=== PATIENT | female | born 1950 | race Caucasian/White ===

== ENCOUNTER → 2020-09-02 13:00 | Outpatient (REF) | payer MEDICARE, OTHER, SELFPAY ==
--- NOTE | 2020-09-02 13:00 | CA_ITS ---
Transthoracic Echocardiogram Patient (Last, First, Middle): Gabrielle Sexton, Gender: Female Date of : 1950 Age: 70 Procedure Date: 09/02/2020 Procedure Type: Transthoracic Echocardiogram Location: OP Height: 170.18 cm Weight: 93.9 kg BSA: 2.05 m2 Heart Rate: bpm BP: 128 / 80 mmHg Public Relations Representative: Referring MD: Donny Méndez MD Symptoms: SVT,PAC,PVC Study Quality: Good ECG Rhythm: Sinus Conclusions: - The left ventricular systolic function is normal. The visually estimated ejection fraction is between 65-70%. - Evidence suggests grade II (moderate) diastolic dysfunction. - There is mild mitral valve regurgitation. - There is mild tricuspid valve regurgitation. - Mild pulmonary hypertension is present. Findings Left Ventricle Normal left ventricular cavity size. There is normal left ventricular wall thickness. The left ventricular systolic function is normal. The visually estimated ejection fraction is between 65-70%. E/E prime ratio is between 8 and 15 consistent with indeterminate filling pressures. Evidence suggests grade II (moderate) diastolic dysfunction. Right Ventricle Mildly increased right ventricular cavity size. There is normal right ventricular systolic function. Atria The left atrium is mildly dilated. The right atrium is normal in size. Aortic Valve There is a normal trileaflet aortic valve. There is no aortic valve stenosis. There is no aortic valve regurgitation. Mitral Valve The mitral valve appears normal. There is mild mitral valve regurgitation. There is no mitral valve stenosis. Pulmonic Valve The pulmonic valve was not well visualized. There is mild pulmonic valve regurgitation. Tricuspid Valve Normal tricuspid valve structure. There is mild tricuspid valve regurgitation. The right ventricular systolic pressure is 36 mmHg. Mild pulmonary hypertension is present. Great Vessels The aortic annulus, sinuses of valsalva, and asc aorta are normal in size. Small plaque is seen in the sino tubular ridge. Venous The inferior vena cava is normal in size and collapses greater than 50% with inspiration. Pericardium/Pleural There is no evidence of pericardial effusion. Prior Study Comparison No significant change compared to prior study dated: 06/03/2019. Measurements 2D Linear Measurements IVSd: 0.90 0.6-0.9/0.6-1.0 cm LVIDd: 4.24 3.9-5.3/4.2-5.9 cm LVIDd Index: 2.07 2.4-3.2/2.2-3.1 cm/m2 LVIDs: 2.62 2.0-3.6 cm LVPWd: 0.97 0.7-1.1 cm Ao Root: 3.20 2.1-3.5 cm LA Diam: 4.10 2.7-3.8/3.0-4.0 cm LAIDs Index: 2.00 1.5-2.3 cm/m2 LV Mass: 157.83 67-162/88-224 g LV Mass Index: 76.99 43-95/49-115 g/m2 LVOT Diam: 2.10 3.0+(-)1.3 cm 2D Systolic Function EF 4C: 67.20 >55% EF 2C: 64.70 >55% EF BiP: 66.90 >55% Mitral Valve MV Pk E: 1.02 MV PK A: 0.87 MV Decel Time: 261.00 E/A: 1.20 E'Lateral: 11.00 E'Medial: 5.80 E/E' Med: 17.60 E/E' Lat: 9.30 PHT: 76.00 MVA PHT: 2.89 [place]: 3.91 Aortic Valve AoV Pk Cy: 1.42 AoV Mn Cy: 0.86 AoV VTI: 0.41 AoV Pk Grad: 8.00 Aov Mn Grad: 4.00 GISELLE Cont.VTI: 2.09 LVOT LVOT Pk Cy: 1.00 LVOT Mn Cy: 0.69 LVOT VTI: 0.25 LVOT Pk Grad: 4.00 LVOT Mn Grad: 2.00 LVOT Diam: 2.10 LVOT Area: 3.46 Diastolic Function MV Pk E: 1.02 MV Pk A: 0.87 E/A: 1.20 E'Medial: 5.80 E/E' Med: 17.60 E' Laterial: 11.00 E/E' Lat: 9.30 Tricuspid Valve TR Pk Cy: 2.89 TR Pk Grad: 33.00 RA Press: 3.00 RVSP: 36.00 Great Vessels Aorta Ao Root-2D: 3.20 2.0-3.7 cm Ao Asc: 3.30 2.1-3.4 cm Ao Arch: 3.60 Pulmonary Valve PV Pk Cy: 0.95 Peak PV Grad: 4.00 Updated in Other Vendor System with Status of Final Donny Méndez MD electronically signed on 09/03/2020 2:13:10 PM with status of Final
--- NOTE | 2020-09-02 13:30 | ECG_ITS ---
Hook-up date: 2020-09-02 13:58:00 Duration: 47:59:00 Test Indications: SVT, PAC, PVC, PALPS Medications: 90676 QRS complexes 1900 Ventricular ectopics which represent 1 % of total QRS comp. 169 Supraventricular ectopics which represent <1 % of total QRS comp. * Paced QRS complexs which represent % of total QRS comp. VENTRICULAR ECTOPY 1776 Isolated 25 Bigeminal Cycles 13 Couplets 14 Runs 98 Beats in Runs 13 Beats LONGEST at 150 BPM at 06:56:32 2020-09-03 5 Beats FASTEST at 162 BPM at 06:57:00 2020-09-03 SUPRAVENTRICULAR ECTOPY 125 Isolated 7 Couplets 5 Runs 30 Beats in Runs 17 Beats LONGEST at 70 BPM at 14:00:03 2020-09-02 3 Beats FASTEST at 172 BPM at 16:41:10 2020-09-02 HEART RATES 48 MIN at 03:10:36 2020-09-03 66 AVG 185 MAX at 06:48:20 2020-09-03 LONGEST RR 1.9920 secs at 03:42:32 2020-09-03 S-T LEVELS Channel 1 - 128 mm at 13:58:00 2020-09-02 - 128 mm at 13:58:00 2020-09-02 Channel 2 - 128 mm at 13:58:00 2020-09-02 - 128 mm at 13:58:00 2020-09-02 Channel 3 - 128 mm at 03:31:71 -- - 128 mm at 03:31:71 Patient rhythm alternated between NSR and atril fibrillation/flutter with RVR No long pause or profound bradycardia Frequent Premature atrial complexes Frequent wide qrs complexes, some of them appear to be PVCs. some aberrant complexes. Frequent wide complex runs,longest 13 beats, NSVT cannot be ruled out Patient reported symptoms of palpitations are during episodes of AF Referred By: Donny Méndez Overread By: NANCY JALLOH MD
== END ==
LOC: HO.CARD 13:00
PROVIDERS: PCP Internal Medicine; Visit Provider Internal Medicine
DX: I47.1 Supraventricular tachycardia (principal); I49.1 Atrial premature depolarization; I49.3 Ventricular premature depolarization; R00.2 Palpitations
CPT/HCPCS: 93226; 93306

== ENCOUNTER → 2020-09-15 13:50 | Outpatient (BNVA) | payer MEDICARE, OTHER, SELFPAY | PROVIDERS: PCP Internal Medicine; Visit Provider Internal Medicine | DX: I48.0 Paroxysmal atrial fibrillation (principal); I47.1 Supraventricular tachycardia; I11.9 Hypertensive heart disease without heart failure; I27.20 Pulmonary hypertension, unspecified; E66.01 Morbid (severe) obesity due to excess calories; Z68.34 Body mass index [BMI] 34.0-34.9, adult; Z79.899 Other long term (current) drug therapy | CPT/HCPCS: 93005; 99212 ==

== ENCOUNTER 2020-09-21 10:55 | Outpatient (REF) | payer MEDICARE, OTHER, SELFPAY ==
[2020-09-21 11:38] LABS: Hematocrit 42.2 % (37-47); Mean Corpuscular HGB Conc 33.2 g/dl (31.0-35.0); Mean Corpuscular Hemoglobin 29.2 pg (27.0-33.0); Mean Corpuscular Volume 88.1 fL (80-98); Mean Platelet Volume 11.3 fL (9.4-12.3); Platelet Count 184 X10*3/uL (160-400); Red Blood Count 4.79 X10*6/uL (4.20-5.50); Red Cell Distribution Width 13.2 % (11.0-16.0); White Blood Count 5.2 X10*3/uL (4.8-10.8)
== END 2020-09-21 10:56 | disposition home or self-care (01) ==
LOC: HO.LAB 10:55
PROVIDERS: Visit Provider Internal Medicine
DX: G47.33 Obstructive sleep apnea (adult) (pediatric) (principal); I48.0 Paroxysmal atrial fibrillation
CPT/HCPCS: 36415; 85027

== ENCOUNTER → 2020-10-03 13:10 | Outpatient (REF) | payer MEDICARE, OTHER, SELFPAY | LOC: HO.SL 13:10 | PROVIDERS: Visit Provider Internal Medicine | DX: G47.33 Obstructive sleep apnea (adult) (pediatric) (principal) | CPT/HCPCS: 95806 ==

== ENCOUNTER → 2020-11-17 12:55 | Outpatient (BNVA) | payer MEDICARE, OTHER, SELFPAY | PROVIDERS: PCP Internal Medicine; Visit Provider Internal Medicine | DX: I48.0 Paroxysmal atrial fibrillation (principal); I10 Essential (primary) hypertension; I51.89 Other ill-defined heart diseases; I27.20 Pulmonary hypertension, unspecified; E66.01 Morbid (severe) obesity due to excess calories | CPT/HCPCS: 99212 ==

== ENCOUNTER → 2021-02-23 10:52 | Outpatient (BNVA) | payer MEDICARE, OTHER, SELFPAY | PROVIDERS: PCP Internal Medicine; Visit Provider Internal Medicine | DX: I48.0 Paroxysmal atrial fibrillation (principal); I10 Essential (primary) hypertension; I51.89 Other ill-defined heart diseases; I27.20 Pulmonary hypertension, unspecified; E66.01 Morbid (severe) obesity due to excess calories; M79.89 Other specified soft tissue disorders | CPT/HCPCS: 93005; 99212 ==

== ENCOUNTER → 2021-10-11 10:04 | Outpatient (BNVA) | payer MEDICARE, OTHER, SELFPAY | PROVIDERS: PCP Internal Medicine; Visit Provider Internal Medicine | DX: I48.0 Paroxysmal atrial fibrillation (principal); I11.0 Hypertensive heart disease with heart failure; I50.30 Unspecified diastolic (congestive) heart failure; I27.20 Pulmonary hypertension, unspecified; E66.01 Morbid (severe) obesity due to excess calories; M79.89 Other specified soft tissue disorders; Z88.1 Allergy status to other antibiotic agents; Z88.2 Allergy status to sulfonamides; Z79.899 Other long term (current) drug therapy | CPT/HCPCS: 99212 ==

== ENCOUNTER → 2021-11-07 11:19 | Outpatient (REF) | payer MEDICARE, OTHER, SELFPAY ==
--- NOTE | 2021-11-07 11:24 | HM_ITS ---
Conclusion: 1. Patient was monitor for total period of 2 days and 19 hours 2. Baseline was normal sinus rhythm with average heart of 57 beats per minute on the bradycardic side 3. 16 short episodes of supraventricular tachycardia, longest lasting 10 beats 4. Total of 10,862 PACs accounting for 5.36% total burden account for frequent PACs 5. No significant pausesnoted 6. No patient reported events MTDD
== END ==
LOC: HO.CARD 11:19
PROVIDERS: Visit Provider Internal Medicine
DX: I48.0 Paroxysmal atrial fibrillation (principal)
CPT/HCPCS: 93242

== ENCOUNTER → 2022-01-03 12:25 | Outpatient (BNVA) | payer MEDICARE, OTHER, SELFPAY | PROVIDERS: PCP Internal Medicine; Visit Provider Internal Medicine | DX: I48.0 Paroxysmal atrial fibrillation (principal); I51.89 Other ill-defined heart diseases; I10 Essential (primary) hypertension; I27.20 Pulmonary hypertension, unspecified; I87.2 Venous insufficiency (chronic) (peripheral); E66.01 Morbid (severe) obesity due to excess calories; M79.89 Other specified soft tissue disorders; Z68.34 Body mass index [BMI] 34.0-34.9, adult | CPT/HCPCS: 99212 ==

== ENCOUNTER 2022-02-14 10:24 | Outpatient (REF) | payer MEDICARE, OTHER, SELFPAY ==
--- NOTE | ~2022-02-14 | US_ITS ---
EXAMINATION: US VENOUS DUPLEX LOWER EXTREMITY, BILATERAL CLINICAL INFORMATION: Lower extremity chronic venous insufficiency. COMPARISON: None TECHNIQUE: Color-flow triplex imaging and compression Doppler were performed to evaluate both the deep and the superficial systems bilaterally. To evaluate the superficial system, the examination was performed in the upright position. Color-flow Doppler ultrasound and compression ultrasound were utilized. In addition, maneuvers were utilized to demonstrate reflux. FINDINGS: SUPERFICIAL ULTRASOUND WITH DOPPLER OF RIGHT LOWER EXTREMITY Great Saphenous Vein: Saphenofemoral junction: 8 mm Maximum diameter: 8 mm Minimum diameter: 2 mm Reflux: No evidence of reflux. Additional: The great saphenous vein is not visualized at the mid calf. Duplicated Medial Great Saphenous Vein: Maximum diameter: 4 mm at the saphenofemoral junction. Reflux: None Duplicated Lateral Great Saphenous Vein: Diameter: 4 mm at the saphenofemoral junction. Reflux: None Small Saphenous Vein: Proximal calf: 2 mm Distal calf: 2 mm Reflux: There is greater than 1.2 seconds of reflux at the distal calf. Vein of Giacomini: None imaged. Perforators: Location: Mid thigh and proximal calf measuring 3 mm and 2 mm respectively. Reflux: None Varicosities: Location: Proximal and distal calf and lateral proximal thigh measuring between 3 mm and 7 mm. Reflux: Varicosities within the distal calf and proximal thigh demonstrate reflux greater than 2.6 seconds. DEEP VENOUS ULTRASOUND OF THE RIGHT LOWER EXTREMITY: Common Femoral Vein: Compressible, normal respiratory variation and augmented flow. Femoral Vein: Compressible, normal color flow and augmentation. Popliteal Vein: Compressible, normal augmentation. Deep Reflux: There is no evidence of reflux in the deep system in either the common femoral vein or the popliteal vein. Rodríguez's Cyst: There is no evidence of a Rodríguez's cyst. SUPERFICIAL ULTRASOUND WITH DOPPLER OF LEFT LOWER EXTREMITY Great Saphenous Vein: Saphenofemoral junction: 12 mm Maximum diameter: 12 mm Minimum diameter: 2 mm Reflux: No evidence of reflux. Duplicated Medial Great Saphenous Vein: Maximum diameter: None imaged. Reflux: NA Duplicated Lateral Great Saphenous Vein: Diameter: 12 mm at the saphenofemoral junction. Reflux: There is greater than 2.8 seconds of reflux at the saphenofemoral junction. Small Saphenous Vein: Proximal calf: 2 mm Distal calf: 3 mm Reflux: There is greater than 2.3 seconds of reflux at the proximal calf. Vein of Giacomini: None imaged. Perforators: Location: Mid thigh and proximal calf measuring between 2 mm and 4 mm. Reflux: None Varicosities: Location: Proximal thigh, at knee and within the distal calf measuring between 3 mm and 7 mm. Reflux: There is greater than 2.8 seconds of reflux within the varicosities of the proximal thigh. DEEP VENOUS ULTRASOUND OF THE LEFT LOWER EXTREMITY: Common Femoral Vein: Compressible, normal respiratory variation and augmented flow. Femoral Vein: Compressible, normal color flow and augmentation. Popliteal Vein: Compressible, normal augmentation. Deep Reflux: There is no evidence of reflux in the deep system in either the common femoral vein or the popliteal vein. Rodríguez's Cyst: There is no evidence of a Rodríguez's cyst. US/US venous duplex LE BI IMPRESSION: 1. Duplicated lateral left great saphenous venous insufficiency beginning at the saphenofemoral junction. 2. Left small saphenous venous insufficiency beginning in the proximal/mid calf. 3. Bilateral refluxing varicosities. 4. No evidence of DVT or deep venous insufficiency.
== END 2022-02-14 10:25 | disposition home or self-care (01) ==
LOC: HO.US 10:24
PROVIDERS: Visit Provider Internal Medicine
DX: I87.2 Venous insufficiency (chronic) (peripheral) (principal)
CPT/HCPCS: 93970

== ENCOUNTER → 2022-04-10 09:10 | Outpatient (BNVA) | payer MEDICARE, OTHER, SELFPAY | PROVIDERS: PCP Internal Medicine; Visit Provider Internal Medicine | DX: I48.0 Paroxysmal atrial fibrillation (principal); I51.89 Other ill-defined heart diseases; I27.20 Pulmonary hypertension, unspecified; I87.2 Venous insufficiency (chronic) (peripheral); I47.1 Supraventricular tachycardia; E66.01 Morbid (severe) obesity due to excess calories; Z79.899 Other long term (current) drug therapy; Z79.01 Long term (current) use of anticoagulants | CPT/HCPCS: 93005; 99212 ==

== ENCOUNTER → 2022-09-25 09:27 | Outpatient (BNVA) | payer MEDICARE, OTHER, SELFPAY | PROVIDERS: PCP Internal Medicine; Referring Provider Internal Medicine; Visit Provider Internal Medicine | DX: I10 Essential (primary) hypertension (principal); I51.89 Other ill-defined heart diseases; I27.20 Pulmonary hypertension, unspecified; I87.2 Venous insufficiency (chronic) (peripheral); E66.01 Morbid (severe) obesity due to excess calories; Z68.35 Body mass index [BMI] 35.0-35.9, adult | CPT/HCPCS: 99212 ==

== ENCOUNTER 2023-05-16 09:23 | Outpatient (AMB) | payer MEDICARE, OTHER, SELFPAY ==
--- NOTE | 2023-05-16 09:26 | MHC.OFFVIS ---
Intake Vital Signs 05/16/23 09:28 Height 5 ft 6 in Weight 221 lb BMI 35.7 BP 132/90 H Blood Pressure Location Lt brachial Position Sitting Pulse 89 Pulse Source Pulse Oximeter Pulse Oximetry (%) 97 Oxygen Delivery Method Room Air Intake Visit Reasons: NPV-Cavernous Hemangioma-confirmed Intake Note: Pt presents to the office today for a new patient visit for cavernous hemangioma. Pt states she is feeling okay. Allergies ciprofloxacin [Cipro] Adverse Reaction (Unknown, Verified 05/16/23 09:30) ringing in the ears,high blood pressure hallucinations Sulfa (Sulfonamide Antibiotics) Adverse Reaction (Unknown, Verified 05/16/23 09:30) ringing in the ears,high blood pressure and hallucinations Medication List - Last Reconciled 05/16/23 by Katie Arora MD amlodipine 10 mg PO DAILY 90 days apixaban (Eliquis) 5 mg PO BID atenolol 75 mg PO DAILY atorvastatin 10 mg PO DAILY furosemide (Lasix) 20 mg PO .PRN levothyroxine 50 mcg PO DAILY HPI HPI Comments History of Present Illness Details 73y/o female with h/o cavernoma comes for evaluation of head pain. 1 year ago she had a sharp pain in her right yarsani area lasting for 2 weeks . she went to [facility] ER- she had a CT scan , not sure if she was given any medications. The pain resolved and she is here for neuro evaluation of her cavernoma. she has snoring but no other sleep issues. Her Home sleep test was normal. she used to have lot of migraines with visual aura and speech issues when she was young. It has decreased in frequency for past 5 years . she has about 1-2 headaches /year. [facility] Medical History (Updated 05/16/23 @ 09:59 by Katie Arora MD) Migraine with aura Cavernous angioma Venous insufficiency of both lower extremities Morbid obesity Diastolic dysfunction Pulmonary hypertension Essential hypertension PAF (paroxysmal atrial fibrillation) Surgical History History of tonsillectomy History of tubal ligation History of partial thyroidectomy History of knee surgery History of back surgery Family History Father CVD (cardiovascular disease) HTN (hypertension) Social History Alcohol intake: never Patient Tobacco Use Status: Never used Tobacco Review of Systems Const Denies weakness ENT Denies dizziness Card Denies chest pain, Denies chest pain with activity, Denies syncope, Denies rapid heart rate, Denies pedal edema, Denies edema, Denies leg edema, Denies lightheadedness, Denies palpitations, Denies dyspnea, Denies dyspnea on exertion and Denies orthopnea Resp Denies cough, Denies dyspnea and Denies dyspnea on exertion GI Denies hematochezia and Denies change in stool character Musc Denies abnormal gait, Denies muscle cramps, Denies muscle weakness, Denies numbness, Denies radiating pain into limb and Denies tingling Neuro Denies abnormal gait, Denies dizziness, Denies syncope, Denies numbness, Denies tingling and Denies weakness Endo Denies palpitations Physical Exam Vital Signs: Last Vital Signs Pulse 89 05/16/23 09:28 BP 132/90 H 05/16/23 09:28 Pulse Ox 97 05/16/23 09:28 Oxygen Delivery Method Room Air 05/16/23 09:28 BMI result Body Mass Index 35.7 Const General: cooperative, healthy appearing and comfortable Nutritional Appearance: obese Orientation/consciousness: patient oriented x3 Limitations: no limitations Eyes Pupils: Equal, round and reactive pupils present Neuro General: patient oriented x3, tone normal, moves all extremities and no focal motor deficits Cranial nerves: Yes Facial sensation intact/muscles of mastication intact, Yes Equal, round and reactive pupils present, Yes Bilaterally intact EOM present, Yes Nystagmus not present, Yes Normal facial strength present, Yes Midline tongue present and Yes Symmetric palate elevation present Cognition (Neuro): normal cognition Gait exam (Neuro): Antalgic gait present Motor exam (neuro): 5/5 motor strength present throughout Deep tendon reflexes (DTR's): Right triceps reflex intensity grade: 1+, Left triceps reflex intensity grade: 1+, Rt Biceps (C5, C6): 1+, Left biceps reflex intensity grade: 1+, Right brachioradialis reflex intensity grade: 1+, Left brachioradialis reflex intensity grade: 1+, Right patellar reflex intensity grade: 1+ and Left patellar reflex intensity grade: 1+ Coordination: [id number] test normal Psych Appearance: grossly normal Results Reviewed Results Reviewed: MR Brain with pema - 04/2020 1.5X1x1 m posterior periventricular cavernoma with adjacent venous angioma Assessment & Plan Assessment & Plan (1) Cavernous angioma: Code(s): D18.00 - Hemangioma unspecified site (2) Migraine with aura: Code(s): G43.109 - Migraine with aura, not intractable, without status migrainosus Plan: stable now Plan MRI brain with pema to reevaluate her angioma Her neuro exam was non focal. I will follow her up on a as needed basis Orders: Orders MR angio head wo/w con Today D18.02 - Hemangioma of intracranial structures Coding Level of Care Code New Pt Level 3 (53094) Diagnoses Cavernous angioma D18.00 Migraine with aura G43.109
[2023-05-16 09:28] VITALS: BP 132/90; PULSE 89; O2SAT 97; BMI 35.7
== END 2023-05-16 10:01 | disposition home or self-care (01) ==
PROVIDERS: Visit Provider Psychiatry & Neurology Neurology
DX: D18.00 Hemangioma unspecified site (principal); G43.109 Migraine with aura, not intractable, without status migrainosus
CPT/HCPCS: 99203

== ENCOUNTER → 2023-05-16 09:23 | Outpatient (BNVA) | payer MEDICARE, OTHER, SELFPAY | PROVIDERS: Visit Provider Psychiatry & Neurology Neurology ==

== ENCOUNTER 2023-06-17 13:58 | Outpatient (REF) | payer MEDICARE, OTHER, SELFPAY ==
--- NOTE | ~2023-06-17 | MR_ITS ---
EXAMINATION: MR ANGIOGRAPHY HEAD CLINICAL INFORMATION: Cavernous hemangioma. Occasional left-sided head pain. COMPARISON: None available. TECHNIQUE: Three-dimensional [id number] MR angiography of the intracranial vasculature was obtained. The patient reportedly refused intravenous contrast for the examination. FINDINGS: MRA of the [place] demonstrates a normal caliber to the anterior and posterior circulation vasculature. No stenoses or occlusions are seen. No vascular malformation or aneurysms are identified. Although not well characterized on this limited [id number] MRA of the head, there is a suspected 7 x 8 mm cavernous malformation in the left periatrial white matter. MR/MR angio head wo con IMPRESSION: Normal MRA of the head. Partially visualized suspected 7 x 8 mm cavernous malformation in the left periatrial white matter.
== END 2023-06-17 13:59 | disposition home or self-care (01) ==
LOC: HO.MRI 13:58
PROVIDERS: PCP Internal Medicine; Visit Provider Psychiatry & Neurology Neurology
DX: D18.02 Hemangioma of intracranial structures (principal)
CPT/HCPCS: 70544

== ENCOUNTER 2023-10-10 13:58 | Outpatient (AMB) | payer MEDICARE, OTHER, SELFPAY ==
[2023-10-10 14:39] VITALS: BP 120/80; PULSE 73; BMI 36.4
--- NOTE | 2023-10-10 14:39 | A.OFFVIS_ITS ---
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: No Accompanied by: Self / Same As Patient Allergies ciprofloxacin [Cipro] Adverse Reaction (Unknown, Verified 05/16/23 09:30) ringing in the ears,high blood pressure hallucinations Sulfa (Sulfonamide Antibiotics) Adverse Reaction (Unknown, Verified 05/16/23 09:30) ringing in the ears,high blood pressure and hallucinations Medication List - Last Reconciled 10/10/23 by Donny Méndez MD amlodipine 10 mg PO DAILY 90 days apixaban (Eliquis) 5 mg PO BID atenolol 75 mg PO DAILY atorvastatin 10 mg PO DAILY furosemide (Lasix) 20 mg PO .PRN levothyroxine 50 mcg PO DAILY HPI HPI Comments History of Present Illness Details Gabrielle returns for follow-up. He carries a previous diagnosis of SVT but then later diagnosed to have rather atrial flutter/fibrillation. Maintained on beta-blockers and Eliquis. She states that she recently had COVID few weeks back and was quite ill but not hospitalized. After that, she has not been feeling too good. No clear-cut angina but a bit more short of breath than usual. She is also feeling palpitations. [facility] Medical History (Updated 10/10/23 @ 15:22 by Donny Méndez MD) Migraine with aura Cavernous angioma Venous insufficiency of both lower extremities Morbid obesity Diastolic dysfunction Pulmonary hypertension Essential hypertension PAF (paroxysmal atrial fibrillation) Surgical History History of tonsillectomy History of tubal ligation History of partial thyroidectomy History of knee surgery History of back surgery Family History Father CVD (cardiovascular disease) HTN (hypertension) Social History Alcohol intake: never Patient Tobacco Use Status: Never used Tobacco Review of Systems Const Denies chills, Denies fatigue, Denies fever(s), Denies frequent falls, Denies weakness, Denies weight gain and Denies weight loss ENT Denies dizziness Card Denies chest pain, Denies leg edema, Denies lightheadedness, Denies palpitations, Denies dyspnea and Denies dyspnea on exertion Resp Denies cough, Denies dyspnea and Denies dyspnea on exertion GI Denies hematochezia Musc Denies abnormal gait, Denies muscle weakness, Denies numbness, Denies radiating pain into limb and Denies tingling Neuro Denies abnormal gait, Denies dizziness, Denies frequent falls, Denies numbness, Denies tingling and Denies weakness Endo Denies fatigue and Denies palpitations Physical Exam Vital Signs: Last Vital Signs Pulse 73 10/10/23 14:39 BP 120/80 10/10/23 14:39 BMI result Body Mass Index 36.4 Const General: comfortable and no acute distress Orientation/consciousness: patient oriented x3 HEENT Other: Unremarkable Head: Yes normal to inspection Neck Neck: Yes normal visual inspection Chest Chest palpation & inspection: normal inspection of the chest Resp Auscultation: clear to auscultation bilaterally Cardio Palpation: normal PMI Heart sounds: S1 normal heart sound present, S2 normal heart sound present, no gallops, no murmurs and no rubs GI Palpation (GI): Soft to palpation Back/Spine/Pelvis Other: unremarkable Skin General skin exam: no rashes or lesions noted Neuro General: patient oriented x3 Extrem General: Yes normal to inspection Psych Mental Status: mental status grossly normal Office Procedures EKG Details: EKG with atrial fibrillation at 73/Min; can not exclude old anterior infarct but could be from body habitus; T inversions noted in anterior leads as well as inferior leads. [id number], Complete Assessment & Plan Assessment & Plan (1) PAF (paroxysmal atrial fibrillation): Code(s): I48.0 - Paroxysmal atrial fibrillation Plan: Continue atenolol. Continue Eliquis. Sleep study without any SCOOTER. We discussed about cardioversion but she has not too keen on it. If she does not convert by herself will readdress. Could have been brought on by COVID. (2) Abnormal EKG: Code(s): R94.31 - Abnormal electrocardiogram [ECG] [EKG] Plan: EKG also shows T inversions which seem to be new. Recommended a stress test but again she states she would rather not have anything done. We will readdress again. Hopefully she will come to terms. Clinically, she does not have any overt angina. (3) Essential hypertension: Code(s): I10 - Essential (primary) hypertension Plan: Stable. Continue amlodipine and atenolol. (4) Diastolic dysfunction: Code(s): I51.89 - Other ill-defined heart diseases Plan: Grade 2 diastolic dysfunction on the last echocardiogram. Likely all from hypertension. As she has some additional shortness of breath, we can reassess with echocardiogram. (5) Pulmonary hypertension: Code(s): I27.20 - Pulmonary hypertension, unspecified Plan: Again related to diastolic dysfunction/hypertension. (6) Morbid obesity: Code(s): E66.01 - Morbid (severe) obesity due to excess calories Plan: Long-term issue and has been this way. May not be modifiable. (7) Venous insufficiency: Code(s): I87.2 - Venous insufficiency (chronic) (peripheral) Plan: She does have venous insufficiency based on ultrasound. Weight loss and compression stockings. Orders: Orders CA echo transthoracic complete Today I48.0 - Paroxysmal atrial fibrillation ECG 3 day holter monitor Today I48.0 - Paroxysmal atrial fibrillation, R00.2 - Palpitations Coding Level of Care Code Est Pt Level 4 (00717) Diagnoses PAF (paroxysmal atrial fibrillation) I48.0 Abnormal EKG R94.31 Essential hypertension I10 Diastolic dysfunction I51.89 Pulmonary hypertension I27.20 Morbid obesity E66.01 Venous insufficiency I87.2 CPT Codes EKG - CPT: 66389-[id number], Complete ([id number])
== END 2023-10-10 15:07 | disposition home or self-care (01) ==
PROVIDERS: PCP Internal Medicine; Visit Provider Internal Medicine
DX: I48.0 Paroxysmal atrial fibrillation (principal); R94.31 Abnormal electrocardiogram [ECG] [EKG]; I10 Essential (primary) hypertension; I51.89 Other ill-defined heart diseases; I27.20 Pulmonary hypertension, unspecified; E66.01 Morbid (severe) obesity due to excess calories; I87.2 Venous insufficiency (chronic) (peripheral)
CPT/HCPCS: 93010; 99214

== ENCOUNTER → 2023-10-10 13:58 | Outpatient (BNVA) | payer MEDICARE, OTHER, SELFPAY | PROVIDERS: PCP Internal Medicine; Visit Provider Internal Medicine | DX: I48.0 Paroxysmal atrial fibrillation (principal); I10 Essential (primary) hypertension; I51.89 Other ill-defined heart diseases; I27.20 Pulmonary hypertension, unspecified; I87.2 Venous insufficiency (chronic) (peripheral); E66.01 Morbid (severe) obesity due to excess calories; R94.31 Abnormal electrocardiogram [ECG] [EKG]; Z68.36 Body mass index [BMI] 36.0-36.9, adult | CPT/HCPCS: 93005; 99212 ==

== ENCOUNTER → 2023-11-05 09:52 | Outpatient (REF) | payer MEDICARE, OTHER, SELFPAY ==
--- NOTE | 2023-11-05 10:01 | CA_ITS ---
Transthoracic Echocardiogram Patient (Last, First, Middle): Gabrielle Sexton, Gender: Female Date of : 1950 Age: 73 Procedure Date: 11/05/2023 Procedure Type: Transthoracic Echocardiogram Location: OP Height: 167.64 cm Weight: 97.52 kg BSA: 2.06 m2 Heart Rate: bpm BP: 130 / 68 mmHg Personal Care Service Provider: TO Referring MD: Donny Méndez MD Symptoms: I48.0 - Paroxysmal atrial fibrillation Study Quality: Adequate ECG Rhythm: Atrial Fibrillation Conclusions: - The left ventricular systolic function is normal. The calculated ejection fraction is 61% by biplane method. - There is mild to moderate tricuspid valve regurgitation. Findings Left Ventricle Normal left ventricular cavity size. There is normal left ventricular wall thickness. The left ventricular systolic function is normal. The calculated ejection fraction is 61% by biplane method. There is no evidence of regional wall motion abnormalities. Diastolic function is indeterminate on the basis of available data. Right Ventricle Mildly increased right ventricular cavity size. There is low normal right ventricular systolic function. Atria The left atrium is mildly dilated. The right atrium is normal in size. Aortic Valve There is a normal trileaflet aortic valve. There is no aortic valve stenosis. There is no aortic valve regurgitation. Mitral Valve The mitral valve appears normal. There is trace mitral valve regurgitation. There is no mitral valve stenosis. Pulmonic Valve The pulmonic valve is likely normal. There is trace pulmonic valve regurgitation. Tricuspid Valve There is mild to moderate tricuspid valve regurgitation. There is no evidence of pulmonary hypertension. Great Vessels The asc aorta is normal in size. Venous The inferior vena cava is mildly dilated and collapses greater than 50% with inspiration. Pericardium/Pleural There is no evidence of pericardial effusion. Prior Study Comparison No significant change compared to prior study dated: 09/02/2020. Measurements 2D Linear Measurements IVSd: 0.95 0.6-0.9/0.6-1.0 cm LVIDd: 3.95 3.9-5.3/4.2-5.9 cm LVIDd Index: 1.92 2.4-3.2/2.2-3.1 cm/m2 LVIDs: 2.54 2.0-3.6 cm LVPWd: 0.89 0.7-1.1 cm LA Diam: 4.00 2.7-3.8/3.0-4.0 cm LAIDs Index: 1.94 1.5-2.3 cm/m2 LV Mass: 137.15 67-162/88-224 g LV Mass Index: 66.58 43-95/49-115 g/m2 LVOT Diam: 2.00 3.0+(-)1.3 cm 2D Systolic Function EF 4C: 56.70 >55% EF 2C: 64.50 >55% EF BiP: 60.80 >55% Mitral Valve MV Pk E: 1.04 MV Decel Time: 244.00 E'Lateral: 9.10 E'Medial: 5.55 E/E' Med: 18.70 E/E' Lat: 11.40 PHT: 72.00 MVA PHT: 3.06 Decel [place]: 4.28 Aortic Valve AoV Pk Cy: 1.25 AoV Pk Grad: 6.00 LVOT LVOT Pk Cy: 0.77 LVOT Mn Cy: 0.50 LVOT VTI: 0.16 LVOT Pk Grad: 2.00 LVOT Mn Grad: 1.00 LVOT Diam: 2.00 LVOT Area: 3.14 Diastolic Function MV Pk E: 1.04 E'Medial: 5.55 E/E' Med: 18.70 E' Laterial: 9.10 E/E' Lat: 11.40 Right Ventricle TAPSE (mm): 18.30 TVS' Cy: 10.40 Tricuspid Valve TR Pk Cy: 2.35 TR Pk Grad: 22.00 RA Press: 8.00 RVSP: 30.00 Great Vessels Aorta Sinus of Valsalva: 3.36 2.0-3.5 cm Ao Asc: 3.60 2.1-3.4 cm Ao Arch: 3.30 Updated in Other Vendor System with Status of Final Donny Méndez MD electronically signed on 11/05/2023 1:14:46 PM with status of Final
--- NOTE | 2023-11-05 11:41 | HM_ITS ---
* Total monitoring time 3 days. * Underlying rhythm is atrial fibrillation average rate of 69/Min. Range 41 to 114/min. * Pause noted, 2.5 seconds during sleep hours. * Occasional PVCs with a burden of 1.1%. Rare couplets. * Palpitations/skipping in patient diary correlates with atrial fibrillation/PVCs. MTDD
== END ==
LOC: HO.CARD 09:52
PROVIDERS: PCP Internal Medicine; Visit Provider Internal Medicine
DX: R00.2 Palpitations (principal); I48.0 Paroxysmal atrial fibrillation
CPT/HCPCS: 93242; 93306

== ENCOUNTER → 2023-11-05 10:01 | Outpatient (BNV) | payer MEDICARE, OTHER, SELFPAY | PROVIDERS: PCP Internal Medicine; Visit Provider Internal Medicine | DX: I48.91 Unspecified atrial fibrillation (principal) | CPT/HCPCS: 93244; 93306 ==

== ENCOUNTER 2023-12-26 10:21 | Outpatient (AMB) | payer MEDICARE, OTHER, SELFPAY ==
[2023-12-26 10:28] VITALS: BP 120/64; PULSE 67; BMI 34.9
--- NOTE | 2023-12-26 10:28 | A.OFFVIS_ITS ---
Vital Signs 12/26/23 10:28 Height 5 ft 6 in Weight 216 lb 7.903 oz BMI 34.9 BP 120/64 Blood Pressure Location Lt brachial Position Sitting Pulse 67 Pulse Source Pulse Oximeter Intake Visit Reasons: f/up echo/holter Instrument Setter Required: No Accompanied by: Self / Same As Patient Allergies ciprofloxacin [Cipro] Adverse Reaction (Unknown, Verified 05/16/23 09:30) ringing in the ears,high blood pressure hallucinations Sulfa (Sulfonamide Antibiotics) Adverse Reaction (Unknown, Verified 05/16/23 09:30) ringing in the ears,high blood pressure and hallucinations Medication List - Last Reconciled 12/26/23 by Donny Méndez MD amlodipine 10 mg PO DAILY 90 days apixaban (Eliquis) 5 mg PO BID atenolol 75 mg PO DAILY atorvastatin 10 mg PO DAILY levothyroxine 50 mcg PO DAILY HPI Comments Details: Gabrielle returns for follow-up. He carries a previous diagnosis of SVT but then later diagnosed to have rather atrial flutter/fibrillation. Maintained on beta- blockers and Eliquis. She states that she recently had COVID few months back and was quite ill but not hospitalized. After that, she has not been feeling too good. No clear-cut angina but a bit more short of breath than usual. Palpitations intermittent. At times, she feels some heartburn type feeling. No clear-cut angina. [facility] Medical History (Updated 10/10/23 @ 15:22 by Donny Méndez MD) Migraine with aura Cavernous angioma Venous insufficiency of both lower extremities Morbid obesity Diastolic dysfunction Pulmonary hypertension Essential hypertension PAF (paroxysmal atrial fibrillation) Surgical History History of tonsillectomy History of tubal ligation History of partial thyroidectomy History of knee surgery History of back surgery Family History Father CVD (cardiovascular disease) HTN (hypertension) Social History Alcohol intake: never Patient Tobacco Use Status: Never used Tobacco Review of Systems Const Denies chills, Denies fatigue, Denies fever(s), Denies frequent falls, Denies weakness, Denies weight gain and Denies weight loss ENT Denies dizziness Card Denies chest pain, Denies leg edema, Denies lightheadedness, Denies palpitations, Denies dyspnea and Denies dyspnea on exertion Resp Denies cough, Denies dyspnea and Denies dyspnea on exertion GI Denies hematochezia Musc Denies abnormal gait, Denies muscle weakness, Denies numbness, Denies radiating pain into limb and Denies tingling Neuro Denies abnormal gait, Denies dizziness, Denies frequent falls, Denies numbness, Denies tingling and Denies weakness Endo Denies fatigue and Denies palpitations Physical Exam Vital Signs: Last Vital Signs Pulse 67 12/26/23 10:28 BP 120/64 12/26/23 10:28 BMI result Body Mass Index 34.9 Const General: comfortable and no acute distress Orientation/consciousness: patient oriented x3 HEENT Other: Unremarkable Head: Yes normal to inspection Neck Neck: Yes normal visual inspection Chest Chest palpation & inspection: normal inspection of the chest Resp Auscultation: clear to auscultation bilaterally Cardio Palpation: normal PMI Heart sounds: S1 normal heart sound present, S2 normal heart sound present, no gallops, no murmurs and no rubs GI Palpation (GI): Soft to palpation Back/Spine/Pelvis Other: unremarkable Skin General skin exam: no rashes or lesions noted Neuro General: patient oriented x3 Extrem General: Yes normal to inspection Psych Mental Status: mental status grossly normal Assessment & Plan Assessment & Plan (1) PAF (paroxysmal atrial fibrillation): Code(s): I48.0 - Paroxysmal atrial fibrillation Category: Medical Plan: Discussed about cardioversion previously, but not interested. In the recent Holter, rate control seems adequate. Continue atenolol. Continue Eliquis. Sleep study without any SCOOTER. (2) Abnormal EKG: Code(s): R94.31 - Abnormal electrocardiogram [ECG] [EKG] Category: Medical Plan: Last EKG also shows T inversions which seem to be new. In the past, she was refusing stress test but now willing. Can arrange pharmacological stress test with Lexiscan as she has a cane and will not be able to do treadmill. (3) Essential hypertension: Code(s): I10 - Essential (primary) hypertension Category: Medical Plan: Stable. Continue amlodipine and atenolol. (4) Morbid obesity: Code(s): E66.01 - Morbid (severe) obesity due to excess calories Category: Medical Plan: Long-term issue and has been this way. May not be modifiable. (5) Venous insufficiency: Code(s): I87.2 - Venous insufficiency (chronic) (peripheral) Category: Medical Plan: She does have venous insufficiency based on ultrasound. Weight loss and compression stockings. Orders: Orders CA lexiscan stress w [place] Today I20.9 - Angina pectoris, unspecified NM cardiolite stress test Today R07.2 - Precordial pain Coding Level of Care Code Est Pt Level 4 (44949) Diagnoses PAF (paroxysmal atrial fibrillation) I48.0 Abnormal EKG R94.31 Essential hypertension I10 Morbid obesity E66.01 Venous insufficiency I87.2
== END 2023-12-26 11:28 | disposition home or self-care (01) ==
PROVIDERS: PCP Internal Medicine; Visit Provider Internal Medicine
DX: I48.0 Paroxysmal atrial fibrillation (principal); R94.31 Abnormal electrocardiogram [ECG] [EKG]; I10 Essential (primary) hypertension; E66.01 Morbid (severe) obesity due to excess calories; I87.2 Venous insufficiency (chronic) (peripheral)
CPT/HCPCS: 99214

== ENCOUNTER → 2023-12-26 10:21 | Outpatient (BNVA) | payer MEDICARE, OTHER, SELFPAY | PROVIDERS: PCP Internal Medicine; Visit Provider Internal Medicine | DX: I48.0 Paroxysmal atrial fibrillation (principal); R94.31 Abnormal electrocardiogram [ECG] [EKG]; I10 Essential (primary) hypertension; E66.01 Morbid (severe) obesity due to excess calories; Z68.34 Body mass index [BMI] 34.0-34.9, adult; I87.2 Venous insufficiency (chronic) (peripheral); Z79.01 Long term (current) use of anticoagulants; Z79.899 Other long term (current) drug therapy | CPT/HCPCS: 99212 ==

== ENCOUNTER 2024-05-07 13:09 | Outpatient (AMB) | payer MEDICARE, OTHER, SELFPAY ==
--- NOTE | 2024-05-07 13:10 | A.OFFVIS_ITS ---
Vital Signs 05/07/24 13:11 Height 5 ft 6 in Weight 213 lb 13.574 oz BMI 34.5 BP 122/68 Blood Pressure Location Lt brachial Position Sitting Pulse 72 Pulse Source Pulse Oximeter Intake Visit Reasons: F/U Allergies ciprofloxacin [Cipro] Adverse Reaction (Unknown, Verified 05/16/23 09:30) ringing in the ears,high blood pressure hallucinations Sulfa (Sulfonamide Antibiotics) Adverse Reaction (Unknown, Verified 05/16/23 09:30) ringing in the ears,high blood pressure and hallucinations HPI Comments Details: 74-year-old female presents [facility] for a follow-up. She has a history of SVT and atrial fibrillation. Been compliant with her medications. Overall, reports feeling well. She did not do her stress test as she has concerns about the test. [facility] Medical History Migraine with aura Cavernous angioma Venous insufficiency of both lower extremities Morbid obesity Diastolic dysfunction Pulmonary hypertension Essential hypertension PAF (paroxysmal atrial fibrillation) Surgical History History of tonsillectomy History of tubal ligation History of partial thyroidectomy History of knee surgery History of back surgery Family History Father CVD (cardiovascular disease) HTN (hypertension) Social History Alcohol intake: never Patient Tobacco Use Status: Never used Tobacco Review of Systems Const Denies weakness ENT Denies dizziness Card Denies chest pain, Denies chest pain with activity, Denies syncope, Denies rapid heart rate, Denies pedal edema, Denies edema, Denies leg edema, Denies lightheadedness, Denies palpitations, Denies dyspnea, Denies dyspnea on exertion and Denies orthopnea Resp Denies cough, Denies dyspnea and Denies dyspnea on exertion GI Denies hematochezia and Denies change in stool character Musc Denies abnormal gait, Denies muscle cramps, Denies muscle weakness, Denies numbness, Denies radiating pain into limb and Denies tingling Neuro Denies abnormal gait, Denies dizziness, Denies syncope, Denies numbness, Denies tingling and Denies weakness Endo Denies palpitations Physical Exam Vital Signs: Last Vital Signs Pulse 72 05/07/24 13:11 BP 122/68 05/07/24 13:11 BMI result Body Mass Index 34.5 Const General: healthy appearing and no acute distress Orientation/consciousness: patient oriented x3 HEENT Head: Yes normal to inspection Eyes General: appearance normal, both eyes and all related structures Neck Neck: Yes normal visual inspection Chest Chest palpation & inspection: normal inspection of the chest Resp Effort & Inspection: normal respiratory effort Auscultation: clear to auscultation bilaterally Cardio Jugular venous distension: no JVD Palpation: normal PMI Rate: regular rate Rhythm: regular rhythm Heart sounds: S1 normal heart sound present, S2 normal heart sound present, no click, no gallops, no murmurs and no rubs GI Inspection: Yes normal to inspection Palpation (GI): Soft to palpation Skin General skin exam: no rashes or lesions noted Neuro General: patient oriented x3 Extrem General: Yes normal to inspection Psych Appearance: grossly normal Assessment & Plan Assessment & Plan (1) Abnormal EKG: Code(s): R94.31 - Abnormal electrocardiogram [ECG] [EKG] Category: Medical Plan: Dr. Méndez ordered a pharmacological stress test due to past EKG showing T wave abnormality. In the past, she was refusing stress test then was willing. Now she has some concerns. Discussed about the pharmacological stress test. She is still worried. Will discuss with Dr. Méndez. (2) Essential hypertension: Code(s): I10 - Essential (primary) hypertension Category: Medical Plan: Stable. Continue amlodipine and atenolol. Medications: Changed From atenolol 75 mg PO DAILY To atenolol 75 mg (1.5 x 50 mg) PO DAILY 90 days 135 tabs 3RF Refilled amlodipine 10 mg PO DAILY 90 days 90 tabs 3RF apixaban (Eliquis) 5 mg PO BID 180 tabs 3RF Coding Level of Care Code Est Pt Level 3 (30131) Diagnoses Abnormal EKG R94.31 Essential hypertension I10
[2024-05-07 13:11] VITALS: BP 122/68; PULSE 72; BMI 34.5
== END 2024-05-07 13:37 | disposition home or self-care (01) ==
PROVIDERS: PCP Internal Medicine; Visit Provider Nurse Practitioner
DX: R94.31 Abnormal electrocardiogram [ECG] [EKG] (principal); I10 Essential (primary) hypertension
CPT/HCPCS: 99213

== ENCOUNTER → 2024-05-07 13:09 | Outpatient (BNVA) | payer MEDICARE, OTHER, SELFPAY | PROVIDERS: PCP Internal Medicine; Visit Provider Nurse Practitioner | DX: I10 Essential (primary) hypertension (principal); R94.31 Abnormal electrocardiogram [ECG] [EKG]; I48.91 Unspecified atrial fibrillation | CPT/HCPCS: 99212 ==